=== PATIENT | male | born 1985 | race Caucasian/White ===

== ENCOUNTER 2018-03-21 09:31 | Emergency (ER) | payer SELFPAY ==
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
[2018-03-21 12:09] VITALS: BP 121/89
== END 2018-03-21 12:12 | disposition home or self-care (01) ==
LOC: ED 09:31
DX: G89.29 Other chronic pain (principal); M54.9 Dorsalgia, unspecified; F17.210 Nicotine dependence, cigarettes, uncomplicated; Z04.1 Encounter for examination and observation following transport accident
CPT/HCPCS: 99282

== ENCOUNTER 2018-12-10 07:28 | Inpatient (IN) | payer OTHER ==
--- NOTE | 2018-12-10 07:59 | ED ---
Complex/Multi-Sys Presentation - HPI Summary HPI Summary: This patient is a 33 year old M with hx IVDU presenting to [facility] with a chief complaint of fall, vomiting constantly, loss of appetite, SOB, and abrasions to bliateral knees. Pt was brought into ED by mother who "did not want him at home ". Pt last used heroin 4 days ago. He was DC'd from rehab on 12/05/18. Upon presentation he is found to be hypothermic with temp 94.6 temporal. Pt was previously in ED on 12/07/18 and was diagnosed with pancreatitis, hyponatremia and acute injury, but declined admission at that time. During that ED admission , pt was hydrated with 2L NS and given Rx for zofran. He had a RUQ US neg for gallstones at that time and a neg CXR. The triage nurse today found a needle in patient's pocket. Pt has generalized pain that he rates 8/10 at triage. Per triage, detox from heroin two weeks ago, was seen Saturday to r/o pancreatitis, but treated for dehydration. Returns today after fall, hit head, vomiting. Difficulty breathing Vital signs while in room: HR 105 bpm, BP 83/63, O2 sat 100% Home Medications Medication Instructions Recorded Confirmed Type Buprenorphine HCl/Naloxone HCl 2 film SL BID 03/21/18 03/21/18 History [Suboxone 12 mg-3 mg Sl Film] Ondansetron ODT TAB* [Zofran 4 MG 4 mg PO Q8H PRN #12 tab.odt 12/07/18 Rx Odt TAB*] - History Of Current Complaint Chief Complaint: EDDetoxRequest Hx Obtained From: Patient, Medical Records - [facility] [place] 12/07/18 Onset/Duration: Still Present Timing: Constant Severity Currently: Severe Severity Initially: Severe Location: Pain At: - generalized Character: Dull Aggravating Factor(s): nothing Alleviating Factor(s): lying down Associated Signs And Symptoms: Positive: SOB, Vomiting, Other - abrasions, presents hypothermic 94.6 temporal. Negative: Headache Related History: Other - IVDU - Allergies/Home Medications Allergies/Adverse Reactions: Allergies Allergy/AdvReac Type Severity Reaction Status Date / Time No Known Allergies Allergy Verified 12/07/18 10:07 PMH/Surg Hx/FS Hx/Imm Hx Previously Healthy: No Endocrine/Hematology History: Denies: Hx Diabetes Cardiovascular History: Denies: Hx Hypercholesterolemia, Hx Hypertension Respiratory History: Denies: Hx Asthma GI History: Reports: Other GI Disorders - pancreatitis Musculoskeletal History: Reports: Other Musculoskeletal History - Chronic back pain Sensory History: Denies: Hx Deafness Psychiatric History: Reports: Hx Substance Abuse - IVDU, failed rehab, DC'd from rehab 12/05/18 - Cancer History Cancer Type, Location and Year: None reported - Surgical History Surgical History: None Surgery Procedure, Year, and Place: None reported Infectious Disease History: No Infectious Disease History: Denies: Traveled Outside the [place] in Last 30 Days - Family History Known Family History: Negative: Cardiac Disease, Hypertension, Diabetes - Social History Occupation: Unemployed Alcohol Use: None Hx Substance Use: Yes Substance Use Type: Reports: Heroin, Prescribed Substance Use Comment - Amount & Last Used: last used 12/06/18 Hx Tobacco Use: Yes Smoking Status (MU): Heavy Every Day Tobacco Smoker Review of Systems Constitutional: Other - hypothermic T 94.6 temporal Positive: Other - pos - loss of appetite ENT: Negative Cardiovascular: Negative Positive: Shortness Of Breath Positive: Vomiting Positive: no symptoms reported Musculoskeletal: Negative Positive: Other - pos - abrasions Negative: Headache Psychological: Normal All Other Systems Reviewed And Are Negative: Yes Physical Exam - Summary Physical Exam Summary: Appearance: Ill-appearing, moderate pain distress, well-nourished, goosebumps, shivering Skin: cool to touch, color reflects adequate perfusion, dry, Abrasions on L knee Head: Normal Head/Face inspection, atraumatic Eyes: Conjunctiva clear, PERRL, EOMI ENT: Normal inspection Neck: Supple, no nodes, no JVD, spines nontender Respiratory: Lungs clear, normal breath sounds, no respiratory distress Cardio: RRR, No murmur, pulses normal, brisk capillary refill Abdomen: Soft, nontender, nondistended, no guarding, no rebound, no masses Bowel sounds: Present Musculoskeletal: Strength Intact/ROM intact, no calf tenderness, no edema. Psychological: Normal Neuro: Alert, muscle tone normal, no focal deficit Triage Information Reviewed: Yes Vital Signs On Initial Exam: Initial Vitals Temp Pulse Resp BP Pulse Ox 94.6 F 111 28 72/38 100 12/10/18 07:29 12/10/18 07:29 12/10/18 07:29 12/10/18 07:29 12/10/18 07:29 Vital Signs Reviewed: Yes Diagnostics - Vital Signs Vital Signs Temp Pulse Resp BP Pulse Ox 12/10/18 07:29 94.6 F 111 28 72/38 100 - Laboratory Result Diagrams: 12/10/18 22:57 12/10/18 11:13 Lab Statement: Any lab studies that have been ordered have been reviewed, and results considered in the medical decision making process. - Radiology CXR Radiology Interpretation Completed By: Radiologist Summary of Radiographic Findings: CXR reveals, per radiologist, IMPRESSION: LOW LUNG VOLUMES, SMALL LEFT BASILAR INFILTRATE. ED physician has reviewed this radiology report. - EKG 0841 Cardiac Rate: NL, Tachycardia EKG Rhythm: Sinus Tachycardia - 100 ST Segment: Non-Specific Ectopy: None Summary of EKG Findings: An EKG at 0841 reveals sinus tachycardia 100 bpm, nml AVCT, prolonged IV/CT (115), nonspecific, prolonged QTc (559). No prior to compare. ED MD has reviewed and interpreted this EKG. Re-Evaluation - Re-Evaluation First Eval Re-Evaluation Time: 09:28 Change: Improved Comment: Pt is on Rajan hugger. Temp is now 99.6 rectally. BP 110/56, HR 102, pt is nauseated, and agrees to admission. Complex Multi-Symp Course/Dx Course Of Treatment: 33 yo M with hx IVDU presents to ED with vomiting, SOB, abrasions to his knee after a fall, and is found to be hypothermic with temporal temp 94.6. Pt was found with needle in his pocket by triage nurse, states his last heroin used was 12/06/18, falied rehab after DC 12/05/18. Pt was in ED 12/07/18 dx'd with pancreatitis, hyponatremia, acute kidney injury, but declined admission at that time. Pt agrees to admission at this time with dx severe sepsis, hypothermia, pneumonia, hyponatremia. Initial physical exam findings are hypothermia 94.6, hypotension 72/38, tachycardia 111, pt alert, O x 3, +goosebumps, shivering, abrasions L knee, nauseous, abdomen soft, nontender, lungs clear, no focal neurologic findings. Pt was not given narcan upon admission as he was fully alert and coherent and denied use of heroin DERRICK MAN. Blood work obtained. Troponin I is 0.05, Myoglobin is 1844.6, INR is 1.23, Plt Count is 647, WBC is 25.9, Potassium is 3.0, Chloride is 59, Carbon Dioxide is 34, Anion Gap is 33, BUN is 68, Creatinine is 4.86, Glucose is 200, Magnesium is 3.0, Total Bilirubin is 1.10, AST is 44, Alkaline Phosphatase is 125, and Total creatine kinase is 751, lactic acid 12.2. I am aware of troponin of 0.05 at 9:05. Aware of Lactic Acid of 12.2 at 09:49. An EKG at 0841 reveals sinus tachycardia 100 bpm, nml AV CT, prolonged IV/CT (115), nonspecific, prolonged QTc (559). No prior to compare. CXR reveals, per radiologist, IMPRESSION: LOW LUNG VOLUMES, SMALL LEFT BASILAR INFILTRATE. Pt medications reviewed this visit. Nurses notes reviewed. Allergies noted. Low blood pressure noted, hypothermia noted. Upon re-eval temp is 99.6 rectal, BP 110/56, HR 102, pt is nauseated, and agrees to admission. In the ED course the patient was given zofran and warmed IV fluids per sepsis protocol, the RAJAN hugger and IV antibiotics for pneumoia, community acquired, ceftriaxone and azithromycin.. Dr. Hernandez accepts pt for admission. Patient will be admitted to ICU. The patient is agreeable with this plan. - Diagnoses Provider Diagnoses: Left lower lobe pneumonia, Severe sepsis, History of heroin abuse, Hypotension , Acute kidney injury, Hyponatremia, Hypokalemia, Elevated troponin, Hypothermia - Physician Notifications Discussed Care Of Patient With: Anila Hernandez Time Discussed With Above Provider: 09:24 Instructed by Provider To: Other - Dr. Hernandez accepts pt for admission. - Critical Care Time Critical Care Time: 30-74 min Discharge ED - Sign-Out/Discharge Documenting (check all that apply): Patient Departure - Admit Patient Received Moderate/Deep Sedation with Procedure: No - Discharge Plan Condition: Stable Disposition: ADMITTED TO [facility] - Billing Disposition and Condition Condition: STABLE Disposition: Admitted to [facility] - Attestation Statements Document Initiated by Scribe: Yes Documenting Scribe: Trudi Cox Provider For Whom Scribe is Documenting (Include Credential): Dr. Vanna Liriano MD Scribe Attestation: Trudi Baptiste, scribed for Dr. Vanna Liriano MD on 12/10/18 at 2319. Scribe Documentation Reviewed: Yes Provider Attestation: The documentation as recorded by the Trudi turk accurately reflects the service I personally performed and the decisions made by me, Dr. Vanna Liriano MD Status of Scribe Document: Viewed
[2018-12-10] MEDS ORDERED: NS 0.9% 1000 ML** 2,000 ML IV ONE (08:06)
[2018-12-10 08:32] LABS: Hematocrit 42 % (42-52); Hemoglobin 14.5 g/dL (14.0-18.0); Mean Corpuscular HGB Conc 34 g/dL (31-36); Mean Corpuscular Hemoglobin 28 pg (27-31); Mean Corpuscular Volume 82 fL (80-94); Mean Platelet Volume 8.1 fL (7.4-10.4); Platelet Count 647 10^3/uL (150-450); Red Blood Count 5.17 10^6 /uL (4.18-5.48); Red Cell Distribution Width 14 % (10-15); White Blood Count 25.9 10^3/uL (3.5-10.8)
[2018-12-10] MEDS ORDERED: Ondansetron INJ* 2 MG/ML VIAL IV ONE (08:39)
[2018-12-10 08:45] LABS: ALT 31 U/L (7-52); AST 44 U/L (13-39); Albumin 4.6 g/dL (3.2-5.2); Albumin/Globulin Ratio 1.1 (1-3); Alkaline Phosphatase 125 U/L (34-104); Anion Gap 33 mmol/L (2-11); Blood Urea Nitrogen 68 mg/dL (6-24); CO2 Carbon Dioxide 34 mmol/L (22-32); Calcium 9.7 mg/dL (8.6-10.3); Chloride 59 mmol/L (101-111); Creatine Kinase 751 U/L (10-223); EGFR Non-African American 14.1 (>60); Globulin 4.2 g/dL (2-4); Glucose 200 mg/dL (70-100); Sodium 126 mmol/L (135-145); Total Protein 8.8 g/dL (6.4-8.9)
[2018-12-10 08:50] LABS: Myoglobin 1844.6 ng/mL (17.4-105.7)
[2018-12-10 08:51] LABS: CKMB ng/mL 6.1 ng/mL (0.6-6.3)
[2018-12-10 08:52] LABS: Activated Partial Thrombo Time 26.5 seconds (26.0-38.0); INR 1.23 (0.82-1.09)
[2018-12-10 08:54] LABS: Troponin I 0.05 ng/mL (<0.04)
[2018-12-10 09:15] LABS: T4, Total 8.58 mcg/dL (6.09-12.23)
[2018-12-10] MEDS ORDERED: Azithromycin 500 mg/250 ml NS 500 MG/250 ML BAG IVPB ONE (09:15)
[2018-12-10] MEDS ORDERED: cefTRIAXone(*) 1 GM in NS 0.9% 50 ML* 50 ML IVPB ONE (09:15)
[2018-12-10] MEDS ORDERED: NS 0.9% 1000 ML** 1,000 ML IV.FLUID IV ONE (09:15)
[2018-12-10 09:19] LABS: TSH (Thyroid Stimulating Horm) 0.45 mcIU/mL (0.34-5.60)
[2018-12-10 09:38] LABS: ABS Basophils 0.1 10^3/ul (0-0.2); ABS Lymphocytes 1.9 10^3/ul (1.0-4.8); ABS Monocytes 1.6 10^3/ul (0-0.8); ABS Neutrophils 22.3 10^3/ul (1.5-7.7); Lymphocyte % 7.4 %
[2018-12-10] MEDS: KCL 10 MEQ/50 ML IVPREMIX* 10 MEQ/50 ML BAG IV SCH ×2 (09:39→10:55)
[2018-12-10 11:23] LABS: Hematocrit 35 % (42-52); Hemoglobin 12.3 g/dL (14.0-18.0); Mean Corpuscular HGB Conc 35 g/dL (31-36); Mean Corpuscular Hemoglobin 28 pg (27-31); Mean Corpuscular Volume 81 fL (80-94); Mean Platelet Volume 7.7 fL (7.4-10.4); Platelet Count 418 10^3/uL (150-450); Red Blood Count 4.36 10^6 /uL (4.18-5.48); Red Cell Distribution Width 14 % (10-15); White Blood Count 19.9 10^3/uL (3.5-10.8)
--- NOTE | 2018-12-10 11:36 | HP ---
History of Present Illness - History of Present Illness Reason for Visit: septic shock History of Present Illness: 33 M with hx of IVDA p/w weakness, falls, n/v, vague abdominal pains, and not being able to eat. Patient just released from rehab 12/05/18. Patient confided to nurse he had been using Heroin several days ago. Needle also found in patient 's pocket. Patient recently seen in the ED and given Z-pack for dehydration and r/o pancreatitis. Had completed 4 out of 5 days of Z-pack. Bladder scan in the ED negative for urine. Patient's SBP's 70's initially. HR low 100's, hypothermic, RR 21-28 and 02 sat 99%. Patient received so far 5 liters in the ED. SBP's now 130's with HR 100's. Labs notable for elevated WBC count 25.9 with left shift, LA 12, creat 4.86. ICU called for septic shock c/b LILLIAN and OD? - Past Surgical History Past Surgical History: None - Past Family History Family History: None - Past Social History Occupation: not working Drugs: Heroin Review of Systems - Review of Systems Constitutional: Positive: Fever, Weakness, Malaise Gastrointestinal: Positive: Nausea, Vomiting, Abdominal Pain - Medications/Allergies Allergies/Adverse Reactions: Allergies Allergy/AdvReac Type Severity Reaction Status Date / Time No Known Allergies Allergy Verified 12/07/18 10:07 Medications: Current Medications Potassium Chloride (Potassium Chloride 10 Meq/50 Ml Ivpremix*) 10 meq in 50 mls @ 50 mls/hr IV Q2H CHELSEA Stop: 12/10/18 12:59 Last Admin: 12/10/18 10:55 Dose: 50 mls/hr Exam - Exam Vital Signs: Vital Signs (72 hours) 12/10/18 12/10/18 12/10/18 07:29 08:07 08:37 Temperature 94.6 F Pulse Rate 111 104 100 Respiratory 28 21 21 Rate Blood Pressure 72/38 99/73 98/79 (mmHg) O2 Sat by Pulse 100 100 99 Oximetry 12/10/18 12/10/18 09:00 09:07 Temperature Pulse Rate 95 99 Respiratory 26 17 Rate Blood Pressure 110/66 (mmHg) O2 Sat by Pulse 100 98 Oximetry General: Alert, Oriented x3, Cooperative, No acute distress HEENT: Other - small left contusion over L eyebrow Lungs: Clear to auscultation Cardiovascular: Regular rate Abdomen: Normal bowel sounds, Soft, No tenderness, Other - mild epigastric pain. negative raygoza's sign or Extremities: No clubbing, No cyanosis Skin: No rashes Neurological: Normal gait Psych/Mental Status: Mood NL Assessment/Plan - Assessment/Plan Assessment: septic shock OD and drug abuse 2/2 Heroin LILLIAN 2/2 dehydration Lactic acidosis PNA - aspiration Hyponatremia Hypokalemia Mild rhabdo Dehydration Plan: Add Vancomycin Check TTE to r/o vegetations from IVDA Continue aggressive IVF's F/U CK's Replenish K and check Mg and f/u S Na Add Cefepime for aspiration PNA continue to monitor Lactates rehab consult admit to ICU for monitoring D/W father and patient his condition severity CCM time 75 minutes
[2018-12-10 11:58] LABS: ALT 22 U/L (7-52); AST 33 U/L (13-39); Albumin 3.8 g/dL (3.2-5.2); Albumin/Globulin Ratio 1.2 (1-3); Alkaline Phosphatase 97 U/L (34-104); BUN/Creatinine Ratio 14.9 (8-20); Blood Urea Nitrogen 66 mg/dL (6-24); C Reactive Protein 92.36 mg/L (<8.01); Calcium 7.9 mg/dL (8.6-10.3); Chloride 72 mmol/L (101-111); EGFR African American 18.9 (>60); EGFR Non-African American 15.6 (>60); Globulin 3.1 g/dL (2-4); Glucose 83 mg/dL (70-100); Potassium 3.6 mmol/L (3.5-5.0); Sodium 129 mmol/L (135-145); Total Protein 6.9 g/dL (6.4-8.9)
[2018-12-10] MEDS ORDERED: Vancomycin per Pharmacy* NOTE FOLLOW UP PRN (11:59)
[2018-12-10] MEDS ORDERED: Vancomycin(*) 1,000 MG VIAL IVPB SCH (12:00)
[2018-12-10] MEDS ORDERED: Vancomycin 1500 MG IV - x ONCE IVPB ONE ×2 (12:00)
[2018-12-10 12:03] LABS: ABS Basophils 0.1 10^3/ul (0-0.2); ABS Lymphocytes 1.2 10^3/ul (1.0-4.8); ABS Monocytes 2.2 10^3/ul (0-0.8); ABS Neutrophils 16.4 10^3/ul (1.5-7.7); CKMB ng/mL 5.9 ng/mL (0.6-6.3); Eosinophil % 0.1 %; Lymphocyte % 6.2 %
[2018-12-10 12:05] LABS: Anion Gap 12 mmol/L (2-11); CO2 Carbon Dioxide 45 mmol/L (22-32); Troponin I 0.07 ng/mL (<0.04)
[2018-12-10] MEDS ORDERED: Lactated Ringers 1000 ML Bag* 1,000 ML IV ONE (13:00)
[2018-12-10] MEDS: Cefepime 1 GM in Dextrose(*) 1 GM/50 ML BAG IV SCH ×2 (13:10→23:26)
[2018-12-10] MEDS: Lactated Ringers 1000 ML Bag* 1,000 ML IV SCH ×2 (15:28→22:46)
[2018-12-10 16:43] LABS: Urine Benzodiazepine Screen Presumptive Positive (None Detect); Urine Opiates Screen Presumptive Positive (None Detect)
[2018-12-10 16:53] LABS: Urine Appearance Turbid; Urine Bacteria 1+ (Absent); Urine Bilirubin Negative (Negative); Urine Blood 1+ (Negative); Urine Color Amber; Urine Glucose Negative (Negative); Urine Granular Casts Present (Absent); Urine Ketones Negative (Negative); Urine Nitrite Negative (Negative); Urine Protein 2+(100 mg/dL) (Negative); Urine Red Blood Cell 1+(3-5/hpf) (Absent); Urine Specific Gravity 1.016 (1.010-1.030); Urine Squamous Epithelial Cell Present (Absent); Urine Urobilinogen Negative (Negative); Urine White Blood Cell 1+(6-10/hpf) (Absent)
[2018-12-10] MEDS ORDERED: Ondansetron INJ* 2 MG/ML VIAL ONE (18:22)
[2018-12-10] MEDS ORDERED: Ondansetron INJ* 2 MG/ML VIAL IV PRN (18:25)
[2018-12-10] MEDS ORDERED: Nicotine Lozenge* mini 4 MG LOZNG.MINI MT PRN (18:25)
[2018-12-10] MEDS ORDERED: LACTATED RINGERS 1000 ML/HR *Bolus IV ONE (19:00)
[2018-12-10 20:22] LABS: Troponin I 0.06 ng/mL (<0.04)
--- NOTE | 2018-12-10 21:32 | ECHO ---
*[facility] [place] [address] Fax #: [phone] Transthoracic Echocardiogram Patient: Jesus Grey : 1985 Study Date: 12/10/2018 Age: 33 Gender: M HR: 76 bpm Height: 78 in /198.1 cm BSA: 2.48 m^2 Weight: 249.5 lb /113.4 kg BMI: 28.9 kg/m^2 *Collection Technician: * Devora Wright [facility] *Referring Physician: * Chapo Power *Reading Physician: * Radha Andrade MD Indications: Myocardial Infarction. Shock, other (Septic). History: IVDU. Conclusions Summary: - Left ventricle: Systolic function is vigorous. The estimated ejection fraction is 60-65%. Wall motion is normal; there are no regional wall motion abnormalities. - Right ventricle: Systolic function is normal. - All valves show normal function. - No prior echocardiogram to compare. Study data: Transthoracic echocardiogram. Procedure: Transthoracic echocardiography was performed. Image quality was fair. Complete 2D, spectral Doppler, and color flow Doppler. Location: ICU Patient status: Inpatient. Patient room number: 7. Rhythm: Normal sinus rhythm. Findings Left ventricle: The cavity size is normal. Wall thickness is normal. Systolic function is vigorous. The estimated ejection fraction is 60-65%. Wall motion is normal; there are no regional wall motion abnormalities. There is no consistent Doppler evidence of clinically significant diastolic dysfunction. Right ventricle: The cavity size is normal. Systolic function is normal. Left atrium: The atrium is normal in size. Right atrium: The atrium is normal in size. Mitral valve: The leaflets are normal thickness. There is no evidence of a vegetation. There is no evidence of stenosis. There is no significant regurgitation. Aortic valve: The valve is trileaflet. The leaflets are normal thickness. There is no evidence of a vegetation. There is no evidence of stenosis. There is no significant regurgitation. Tricuspid valve: The leaflets are normal thickness. There is no evidence of a vegetation. There is no evidence of stenosis. There is no significant regurgitation. Pulmonic valve: The leaflets are normal thickness. There is no evidence of a vegetation. There is no evidence of stenosis. There is trace regurgitation. Aorta: Aortic root: The aortic root is upper normal in size. Ascending aorta: The ascending aorta is appears normal. Aortic arch: The aortic arch is appears normal. Pericardium: There is no significant pericardial effusion. Pulmonary arteries: Not well visualized. Systolic pressure can not be accurately estimated. Systemic veins: Inferior vena cava: The vessel is normal in size. There is (>= 50%) respiratory change in the IVC dimension. Measurements Left ventricle Value Ref Right atrium continued Value Ref KAROLYN, LAX 4.8 cm 4.2 - 5.8 ML dim, ES, A4C 4.1 cm 2.6 - 4.4 ESD, LAX 3.5 cm 2.5 - 4.0 Estimated RAP 8 mm Hg --------- FS, LAX 27 % 25 - 43 PW, ED, LAX (H) 1.1 cm 0.6 - 1.0 Aortic valve Value Ref EF 53 % 52 - 72 Americo diam, ED 2.5 cm --------- E', lat americo, TDI 10.9 cm/sec >=10.0 Peak v, S 1.69 m/sec ----- ---- E/e', lat americo, 6 VTI, S 30.1 cm -------- - TDI Mean grad, S 7.0 mm Hg --------- E', med americo, TDI 13.0 cm/sec >=7.0 Peak grad, S 11.0 mm Hg ----- ---- E/e', med americo, 5 TDI Mitral valve Value Ref E', avg, TDI 12.0 cm/sec Peak E 0.66 m/sec -------- - E/e', avg, TDI 6 <=14 Peak A 0.62 m/sec ----- ---- Decel time 129 ms --------- LVOT Value Ref Peak E/A ratio 1.1 --------- Peak patsy, S 1.38 m/sec Peak grad, S 8 mm Hg Pulmonic valve Value Ref Mean grad, S 4 mm Hg Peak v, S 1.1 m/sec --------- Peak grad, S 5.0 mm Hg --------- Ventricular septum Value Ref IVS, ED (H) 1.1 cm 0.6 - 1.0 Aortic root Value Ref Root diam 3.7 cm <4.2 Right ventricle Value Ref KAROLYN, LAX 2.8 cm Aortic arch Value Ref KAROLYN minor ax, 2.6 cm 1.9 - 3.5 Arch diam 3.2 cm --------- A4C mid Decending aorta Value Ref Left atrium Value Ref Debi peak patsy 0.61 m/sec --------- AP dim, ES 3.50 cm 3.00 - 4.00 Inferior vena cava Value Ref ML dim, A4C 4.5 cm Diam 1.3 cm --------- SI dim, A4C 4.4 cm Vol/bsa, ES, 1-p 20 ml/m^2 12 - 37 A4C Right atrium Value Ref SI dim, ES 4.3 cm 3.4 - 5.3 Legend: (L) and (H) irma values outside specified reference range. Prepared and electronically signed by Radha Andrade MD 12/10/2018 21:31
[2018-12-10 23:13] LABS: Hematocrit 31 % (42-52); Hemoglobin 10.7 g/dL (14.0-18.0); Mean Corpuscular HGB Conc 34 g/dL (31-36); Mean Corpuscular Hemoglobin 28 pg (27-31); Mean Corpuscular Volume 81 fL (80-94); Mean Platelet Volume 7.8 fL (7.4-10.4); Platelet Count 334 10^3/uL (150-450); Red Blood Count 3.84 10^6 /uL (4.18-5.48); Red Cell Distribution Width 15 % (10-15); White Blood Count 17.4 10^3/uL (3.5-10.8)
[2018-12-10 23:31] LABS: Albumin 3.4 g/dL (3.2-5.2); Albumin/Globulin Ratio 1.2 (1-3); BUN/Creatinine Ratio 16.7 (8-20); EGFR African American 20.8 (>60); EGFR Non-African American 17.2 (>60); Globulin 2.8 g/dL (2-4); Magnesium 2.4 mg/dL (1.9-2.7); Total Bilirubin 0.5 mg/dL (0.2-1.0); Total Protein 6.2 g/dL (6.4-8.9)
[2018-12-10 23:34] LABS: Potassium 2.7 mmol/L (3.5-5.0)
[2018-12-10 23:35] LABS: ABS Basophils 0.1 10^3/ul (0-0.2); ABS Lymphocytes 1.9 10^3/ul (1.0-4.8); ABS Monocytes 1.8 10^3/ul (0-0.8); ABS Neutrophils 13.5 10^3/ul (1.5-7.7); Eosinophil % 0.2 %
[2018-12-10] MEDS: KCL 20 MEQ/100 ML IVPREMIX* 20 MEQ/100 ML BAG IV SCH (23:59)
[2018-12-11] MEDS: KCL 20 MEQ/100 ML IVPREMIX* 20 MEQ/100 ML BAG IV SCH ×3 (02:12→13:04)
[2018-12-11] MEDS: Lactated Ringers 1000 ML Bag* 1,000 ML IV SCH ×3 (05:14→19:30)
[2018-12-11] MEDS: Acetaminophen TAB* 325 MG PO PRN (05:38)
[2018-12-11] MEDS ORDERED: Vancomycin Random Level* NOTE FOLLOW UP ONE (06:00)
[2018-12-11] MEDS ORDERED: Acetaminophen TAB* 325 MG PO ONE (06:17)
[2018-12-11 07:44] LABS: Vancomycin Random 13.2 mcg/mL
[2018-12-11 08:25] LABS: HIV 4th Generation Nonreactive (Nonreactive)
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
[2018-12-11 11:54] LABS: Calcium 8.6 mg/dL (8.6-10.3); Potassium 3.2 mmol/L (3.5-5.0)
[2018-12-11 11:58] LABS: BUN/Creatinine Ratio 17.1 (8-20); EGFR African American 24.8 (>60); EGFR Non-African American 20.5 (>60)
[2018-12-11] MEDS ORDERED: Potassium Chlor TAB* 20 MEQ TAB.ER PO ONE (12:01)
[2018-12-11] MEDS ORDERED: Vancomycin(*) 1,250 MG in NS 0.9% 250 ML* 250 ML IVPB ONE (12:30)
[2018-12-11] MEDS: Cefepime 1 GM in Dextrose(*) 1 GM/50 ML BAG IV SCH (13:08)
[2018-12-12] MEDS: Cefepime 1 GM in Dextrose(*) 1 GM/50 ML BAG IV SCH ×3 (00:11→23:36)
[2018-12-12] MEDS: Lactated Ringers 1000 ML Bag* 1,000 ML IV SCH ×2 (02:38→13:08)
[2018-12-12] MEDS ORDERED: Vancomycin Random Level* NOTE FOLLOW UP ONE (06:00)
[2018-12-12 06:39] LABS: ABS Basophils 0.1 10^3/ul (0-0.2); ABS Eosinophils 0.1 10^3/ul (0-0.6); ABS Lymphocytes 1.5 10^3/ul (1.0-4.8); ABS Monocytes 1.3 10^3/ul (0-0.8); ABS Neutrophils 6.9 10^3/ul (1.5-7.7); Eosinophil % 0.8 %; Hematocrit 33 % (42-52); Hemoglobin 11.5 g/dL (14.0-18.0); Lymphocyte % 15.6 %; Mean Corpuscular HGB Conc 35 g/dL (31-36); Mean Corpuscular Hemoglobin 29 pg (27-31); Mean Corpuscular Volume 82 fL (80-94); Mean Platelet Volume 7.6 fL (7.4-10.4); Platelet Count 327 10^3/uL (150-450); Red Cell Distribution Width 14 % (10-15); White Blood Count 9.9 10^3/uL (3.5-10.8)
[2018-12-12 07:01] LABS: Albumin 3.6 g/dL (3.2-5.2); Albumin/Globulin Ratio 1.3 (1-3); BUN/Creatinine Ratio 18.2 (8-20); Calcium 8.9 mg/dL (8.6-10.3); EGFR African American 53.2 (>60); EGFR Non-African American 43.9 (>60); Globulin 2.8 g/dL (2-4); Magnesium 2.2 mg/dL (1.9-2.7); Total Bilirubin 0.5 mg/dL (0.2-1.0); Total Protein 6.4 g/dL (6.4-8.9)
[2018-12-12 07:22] LABS: Potassium 2.6 mmol/L (3.5-5.0)
[2018-12-12] MEDS ORDERED: KCL 20 MEQ/100 ML IVPREMIX* 20 MEQ/100 ML BAG IV SCH (09:00)
[2018-12-12] MEDS ORDERED: Vancomycin(*) 1,250 MG in NS 0.9% 250 ML* 250 ML IVPB SCH (10:00)
--- NOTE | 2018-12-12 10:01 | PN ---
Date of Service: 12/12/18 Critical Care Services: Renal functions improving. GOod UOP Remains hypokalemic. Some nausea last night though now wants to eat no signs of withdrawal no fevers and Cx's remain NGTD Vital Signs: Temp Pulse Resp BP SpO2 FiO2 99.3 F 71 17 105/57 92 12/12/18 03:15 12/12/18 09:00 12/12/18 09:00 12/12/18 09:00 12/12/18 09:00 Physical Exam: Gen:NAD. Ao times 3 Lungs: CTA B/L Cardiac: RRR Abdomen:+BS's soft, NTP Extremities:No MARCELINO Neuro:Non-focal Fluid Balance (Past 24 Hours): I= O= Net Intake & Output 12/10/18 12/11/18 12/12/18 12/13/18 06:59 06:59 06:59 06:59 Intake Total 44473 6272 90 Output Total 3525 4060 0 Balance 8050 2212 90 Weight 240 lb 4.862 oz 222 lb 10.67 oz Intake: IV Fluids 9776 3247 LR 3911 3033 NS 265 214 IVPB 599 55 ABX - CEFEPIME 131 55 ABX - VANCOMYCIN 253 Potassium Chloride 215 Oral 1200 2970 90 Output: Urine 1050 4060 0 Jacobs 475 Emesis 1999 Other: Date of Last Bowel 12/10/2018 12/11/18 Movement Other Amount Description 1 large emesis following drinking erum brooke # Voids 0 A Labs: Laboratory Results - last 24 hr 12/11/18 12/12/18 12/12/18 06:51 06:24 06:24 WBC 9.9 RBC 4.00 L Hgb 11.5 L Hct 33 L MCV 82 MCH 29 MCHC 35 RDW 14 Plt Count 327 MPV 7.6 Neut % (Auto) 70.3 Lymph % (Auto) 15.6 [place] % (Auto) 12.8 Eos % (Auto) 0.8 Baso % (Auto) 0.5 Absolute Neuts (auto) 6.9 Absolute Lymphs (auto) 1.5 Absolute Monos (auto) 1.3 H Absolute Eos (auto) 0.1 Absolute Basos (auto) 0.1 Absolute Nucleated RBC 0.0 Nucleated RBC % 0.0 Sodium 130 L 135 Potassium 3.2 L 2.6 L* Chloride 74 L 80 L Carbon Dioxide 43 H* 43 H* Anion Gap 13 H 12 H BUN 60 H 33 H Creatinine 3.50 H 1.81 H Est GFR ( Amer) 24.8 53.2 Est GFR (Non-Af Amer) 20.5 43.9 BUN/Creatinine Ratio 17.1 18.2 Glucose 93 95 Calcium 8.6 8.9 Magnesium 2.2 Total Bilirubin 0.50 AST 25 ALT 18 Alkaline Phosphatase 76 Total Protein 6.4 Albumin 3.6 Globulin 2.8 Albumin/Globulin Ratio 1.3 Random Vancomycin 13.2 12.0 Impression: s/p septic shock with negative Cx's s/p LILLIAN Hypokalemia Aspiration PNA IVDA Plan: Stop Vancomycin Continue Cefepime Continue aggressive IVF's Replenish K and f/u Mg Patient speaking to SW regarding rehab. patient wants to go back to drug rehab if someone will accept him transfer to floor Critical Care Time: 45
[2018-12-12] MEDS ORDERED: Potassium Chlor TAB* 20 MEQ TAB.ER PO ONE ×2 (11:00→20:55)
[2018-12-12] MEDS: Nicotine PATCH 14 MG/24 HR* PATCH TRANSDERM SCH (12:51)
[2018-12-12] MEDS: Acetaminophen TAB* 325 MG PO PRN (13:00)
[2018-12-12] MEDS: Nicotine Patch Removal NOTE PATCH OFF SCH (20:00)
[2018-12-12] MEDS ORDERED: Acetaminophen TAB* 325 MG PO PRN (20:38)
[2018-12-12] MEDS ORDERED: ALPRAZolam TAB* 0.5 MG PO ONE (20:50)
[2018-12-12] MEDS ORDERED: traMADol TAB* 50 MG PO ONE (20:51)
--- NOTE | 2018-12-12 21:02 | PN ---
Hospitalist Progress Note Date of Service: 12/12/18 Called by Nursing for patient c/o back pain. Patient evaluated at the bedside. C/o lower back pain , patient reports that he has chronic lower back pain for which he uses heroin to treat at home. Reports that he take 3 grams of heroin daily and take xanax as well up to 4 mg a day. L- spine is tender to palpation. no evidence of redness or open lesions. Will give 1 time dose of Tramadol and Xanax. tonight. Will give potassium 60 meq as patient is refusing IV. Repeat potassium level in the AM. May need to consider lumbar spine imaging as the patient has a HX if IV drug use.
[2018-12-12] MEDS ORDERED: traZODone TAB* 50 MG TAB PO ONE (23:46)
[2018-12-13 05:20] LABS: BUN/Creatinine Ratio 18.7 (8-20); Calcium 8.5 mg/dL (8.6-10.3); EGFR African American 97.5 (>60); EGFR Non-African American 80.6 (>60); Potassium 3.4 mmol/L (3.5-5.0)
[2018-12-13] MEDS: Lactated Ringers 1000 ML Bag* 1,000 ML IV SCH (05:34)
[2018-12-13] MEDS ORDERED: Vancomycin Trough Check NOTE FOLLOW UP ONE (09:30)
[2018-12-13] MEDS ORDERED: Potassium Chlor TAB* 20 MEQ TAB.ER PO ONE (09:36)
[2018-12-13] MEDS ORDERED: Vancomycin per Pharmacy* NOTE FOLLOW UP SCH ×2 (10:00→17:00)
[2018-12-13] MEDS: Nicotine PATCH 14 MG/24 HR* PATCH TRANSDERM SCH (10:58)
[2018-12-13] MEDS: hydrOXYzine HCL TAB* 25 MG PO PRN ×2 (11:47→21:10)
[2018-12-13] MEDS: Cefepime 1 GM in Dextrose(*) 1 GM/50 ML BAG IV SCH (11:47)
[2018-12-13 15:34] LABS: BUN/Creatinine Ratio 15.3 (8-20); Calcium 8.6 mg/dL (8.6-10.3); EGFR African American 93.5 (>60); EGFR Non-African American 77.3 (>60); Potassium 4.1 mmol/L (3.5-5.0)
[2018-12-13] MEDS ORDERED: Vancomycin(*) 1,500 MG in NS 0.9% 250 ML* 250 ML IVPB ONE (17:00)
--- NOTE | 2018-12-13 17:05 | PN ---
Subjective Date of Service: 12/13/18 Interval History: Patient tells me he has been taking [address] BID off [address]. He has mcfp anxiety issues but PDMP is without any benzo prescriptions in the last year and a half. Tells me he wants to go into methadone program. He reports low back pain, which is chronic. Denies LE weakness or LE paresthesias. Denies fever /chills, chest pain, difficulty breathing, abd pain, nausea, vomiting. Objective Active Medications: Acetaminophen (Tylenol Tab*) 975 mg PO Q8H PRN PRN Reason: PAIN - MILD Alprazolam (Xanax Tab*) 1 mg PO BID PRN PRN Reason: ANXIETY Hydroxyzine HCl (Atarax Tab*) 25 mg PO Q6H PRN PRN Reason: ANXIETY Last Admin: 12/13/18 11:47 Dose: 25 mg Cefepime HCl (Maxipime 1 Gm In Dextrose Duplex (*)) 1 gm in 50 mls @ 100 mls/ hr IV 0000,1200 [facility] Last Admin: 12/13/18 11:47 Dose: 100 mls/hr Vancomycin HCl 1,500 mg/ (Sodium Chloride) 250 mls @ 166.667 mls/hr IVPB ONCE ONE; Protocol Stop: 12/13/18 18:29 Vancomycin HCl 1,000 mg/ (Sodium Chloride) 250 mls @ 166.667 mls/hr IVPB Q6HR [facility] Nicotine (Nicotine Patch 14 Mg/24 Hr*) 1 patch TRANSDERM DAILY [facility] Last Admin: 12/13/18 10:58 Dose: 1 patch Nicotine Polacrilex (Nicotine Lozenge Mini) 4 mg MT Q2H PRN PRN Reason: WITHDRAWAL Last Admin: 12/10/18 19:03 Dose: 4 mg Ondansetron HCl (Zofran Inj*) 4 mg IV Q6H PRN PRN Reason: NAUSEA Last Admin: 12/11/18 05:46 Dose: 4 mg Pharmacy Consult (Vancomycin Per Pharmacy*) 1 note FOLLOW UP .VANC PER PHARMACY [facility]; Protocol Pharmacy Profile Note (Nicotine Patch Removal Note*) 1 note PATCH OFF 2100 [facility] Last Admin: 12/12/18 20:00 Dose: 1 note Pharmacy Profile Note (Vancomycin Trough Check) 1 note FOLLOW UP ONCE ONE Stop: 12/15/18 05:31 Senna (Senokot 8.6 Mg Tab*) 2 tab PO BEDTIME [facility] Sertraline HCl (Zoloft*) 25 mg PO DAILY [facility] Vital Signs - 8 hr 12/13/18 11:15 Temperature 98.1 F Pulse Rate 69 Respiratory 18 Rate Blood Pressure 118/72 (mmHg) O2 Sat by Pulse 99 Oximetry Oxygen Devices in Use Now: None Appearance: Thin, young, white male laying in bed appearing in NAD Eyes: No Scleral Icterus, PERRLA Ears/Nose/Mouth/Throat: Mucous Membranes Moist Neck: NL Appearance and Movements; NL JVP Respiratory: Symmetrical Chest Expansion and Respiratory Effort, Clear to Auscultation Cardiovascular: NL Sounds; No Murmurs; No JVD, RRR Abdominal: - - abd soft, nontender, nondistended Extremities: No Edema, No Clubbing, Cyanosis Skin: No Rash or Ulcers Neurological: Alert and Oriented x 3, NL Muscle Strength and Tone Result Diagrams: 12/12/18 06:24 12/13/18 15:04 Microbiology and Other Data: Microbiology 12/10/18 08:59 Aerobic Blood Culture - Preliminary Blood Venous No Growth Day 3 Anaerobic Blood Culture - Preliminary No Growth Day 3 12/10/18 08:15 Aerobic Blood Culture - Preliminary Blood Venous No Growth Day 3 Anaerobic Blood Culture - Preliminary No Growth Day 3 12/10/18 16:10 Urine Culture - Final Urine No Growth (<1,000 CFU/mL) 12/10/18 13:00 Nasal Screen MRSA (PCR) - Final Nasal Mrsa Not Detected Assess/Plan/Problems-Billing Assessment: 33 yo male with PMHx IVDA, generalized anxiety, and hiatal hernia presents with septic shock and fever of unknown origin. - Patient Problems (1) Septic shock Current Visit: Yes Status: Acute Code(s): A41.9 - SEPSIS, UNSPECIFIED ORGANISM; R65.21 - SEVERE SEPSIS WITH SEPTIC SHOCK SNOMED Code(s): 28799394 Comment: -now resolved -secondary to unclear source -originally with lactate of 12, has since normalized; initially with hypotension which has now resolved as well (2) Fever of unknown origin Current Visit: Yes Status: Acute Comment: -patient presented with fever, leukocytosis and signs of septic shock -given IVDA, high concern for endocarditis -TTE without vegetation, ordered JAMES but will not be performed over the holiday weekend -improved with vancomycin, continuing -blood and urine cultures without growth, CXR negative -ordered MRI with contrast of thoracic and lumbar spine to r/o spinal epidural abscess, pending -afebrile for ~36 hours and leukocytosis resolved (3) IV drug abuse Current Visit: Yes Status: Acute Code(s): F19.10 - OTHER PSYCHOACTIVE SUBSTANCE ABUSE, UNCOMPLICATED SNOMED Code(s): 503132004 Comment: -patient has been in inpatient rehab, left two weeks ago, and has returned to using IV heroin -restarting suboxone at 8mg, patient previously prescribed 12 mg and will likely tolerate uptitration (4) Benzodiazepine abuse Current Visit: Yes Status: Acute Code(s): F13.10 - SEDATIVE, HYPNOTIC OR ANXIOLYTIC ABUSE, UNCOMPLICATED SNOMED Code(s): 097629185 Comment: -given that patient has been taking xanax recreationally at 2 mg po BID, I will continue at 1 mg po BID to avoid withdrawal and he should be titrated down -started zoloft for generalized anxiety (5) LILLIAN (acute kidney injury) Current Visit: Yes Status: Acute Code(s): N17.9 - ACUTE KIDNEY FAILURE, UNSPECIFIED SNOMED Code(s): 17429057 Comment: -likely prerenal due to septic shock -now resolved (6) Hypokalemia Current Visit: Yes Status: Acute Code(s): E87.6 - HYPOKALEMIA SNOMED Code( s): 19077958 Comment: -vomiting leading up to admission -continued this morning, replaced with 60mg PO potassium chloride -now resolved (7) DVT prophylaxis Current Visit: Yes Status: Acute Code(s): Z29.9 - ENCOUNTER FOR PROPHYLACTIC MEASURES, UNSPECIFIED SNOMED Code(s): 147330726 Comment: -ambulation (8) Full code status Current Visit: Yes Status: Acute Code(s): Z78.9 - OTHER SPECIFIED HEALTH STATUS SNOMED Code(s): 284647541
[2018-12-13] MEDS: ALPRAZolam TAB* 0.5 MG PO PRN (18:02)
[2018-12-13] MEDS: Buprenorp/Nalox 8-2 MG SL TAB PO SCH (21:10)
[2018-12-13] MEDS: Nicotine Patch Removal NOTE PATCH OFF SCH (21:12)
[2018-12-13] MEDS: Senna TAB 8.6 mg* TAB PO SCH (21:12)
[2018-12-14] MEDS: ALPRAZolam TAB* 0.5 MG PO PRN ×3 (00:06→18:18)
[2018-12-14] MEDS: Vancomycin(*) 1,000 MG in NS 0.9% 250 ML* 250 ML IVPB SCH ×5 (00:07→23:45)
[2018-12-14] MEDS: Cefepime 1 GM in Dextrose(*) 1 GM/50 ML BAG IV SCH ×3 (00:08→23:46)
--- NOTE | 2018-12-14 08:52 | PN ---
Subjective Date of Service: 12/14/18 Interval History: Patient is feeling well today, appetite back to normal, ordered food from outside. No fever, chills, sweating, no abdominal pain, no nausea/vomiting. TTE neg Labs: WBC normalized, BMP normal Objective Active Medications: Acetaminophen (Tylenol Tab*) 975 mg PO Q8H PRN PRN Reason: PAIN - MILD Alprazolam (Xanax Tab*) 1 mg PO BID PRN PRN Reason: ANXIETY Last Admin: 12/14/18 00:06 Dose: 1 mg Buprenorphine/Naloxone (Suboxone 8-2 Mg Sl Tab*) 1 tab.sl PO QPM [facility] Last Admin: 12/13/18 21:10 Dose: 1 tab.sl Hydroxyzine HCl (Atarax Tab*) 25 mg PO Q6H PRN PRN Reason: ANXIETY Last Admin: 12/13/18 21:10 Dose: 25 mg Cefepime HCl (Maxipime 1 Gm In Dextrose Duplex (*)) 1 gm in 50 mls @ 100 mls/ hr IV 0000,1200 [facility] Last Admin: 12/14/18 00:08 Dose: 100 mls/hr Vancomycin HCl 1,000 mg/ (Sodium Chloride) 250 mls @ 166.667 mls/hr IVPB Q6HR [facility] Last Admin: 12/14/18 05:05 Dose: 166.667 mls/hr Nicotine (Nicotine Patch 14 Mg/24 Hr*) 1 patch TRANSDERM DAILY [facility] Last Admin: 12/13/18 10:58 Dose: 1 patch Nicotine Polacrilex (Nicotine Lozenge Mini) 4 mg MT Q2H PRN PRN Reason: WITHDRAWAL Last Admin: 12/10/18 19:03 Dose: 4 mg Ondansetron HCl (Zofran Inj*) 4 mg IV Q6H PRN PRN Reason: NAUSEA Last Admin: 12/11/18 05:46 Dose: 4 mg Pharmacy Consult (Vancomycin Per Pharmacy*) 1 note FOLLOW UP .VANC PER PHARMACY [facility]; Protocol Pharmacy Profile Note (Nicotine Patch Removal Note*) 1 note PATCH OFF 2100 [facility] Last Admin: 12/13/18 21:12 Dose: 1 note Pharmacy Profile Note (Vancomycin Trough Check) 1 note FOLLOW UP ONCE ONE Stop: 12/15/18 05:31 Senna (Senokot 8.6 Mg Tab*) 2 tab PO BEDTIME [facility] Last Admin: 12/13/18 21:12 Dose: Not Given Sertraline HCl (Zoloft*) 25 mg PO DAILY [facility] Vital Signs - 8 hr 12/14/18 12/14/18 12/14/18 02:10 03:28 07:15 Temperature 98.2 F 98.2 F Pulse Rate 80 76 Respiratory 16 16 25 Rate Blood Pressure 113/69 120/70 (mmHg) O2 Sat by Pulse 99 99 Oximetry Oxygen Devices in Use Now: None Exam: General - NAD, sitting up in bed, well groomed and in nightgown Eyes - PERRLA, EOM intact HEENT- no abnormality Cardiovascular - RRR no m/r/g, no JVD, no carotid bruits Lungs - Clear to auscltation, no use of acessory muscles, no crackles or wheezes. Skin - No rashes, skin warm and dry, no erythematous areas; no erythema Abdomen - Normal bowel sounds, abdomen soft and nontender Extremeties - No edema, cyanosis or clubbing Musculo Skeletal - 5/5 strength, normal range of motion, no swollen or erythematous joints. Neurological Alert and oriented x 3, CN 2-12 grossly intact. Psychiatry- Result Diagrams: 12/12/18 06:24 12/13/18 15:04 Microbiology and Other Data: Microbiology 12/10/18 08:59 Aerobic Blood Culture - Preliminary Blood Venous No Growth Day 3 Anaerobic Blood Culture - Preliminary No Growth Day 3 12/10/18 08:15 Aerobic Blood Culture - Preliminary Blood Venous No Growth Day 3 Anaerobic Blood Culture - Preliminary No Growth Day 3 12/10/18 16:10 Urine Culture - Final Urine No Growth (<1,000 CFU/mL) 12/10/18 13:00 Nasal Screen MRSA (PCR) - Final Nasal Mrsa Not Detected Assess/Plan/Problems-Billing Assessment: 33 yo male with PMHx IVDA, generalized anxiety, and hiatal hernia presents with septic shock and fever of unknown origin. - Patient Problems (1) Fever of unknown origin Current Visit: Yes Status: Acute Comment: -patient presented with fever, leukocytosis and signs of septic shock -given IVDA, high concern for endocarditis -TTE without vegetation, ordered JAMES but will not be performed over the holiday weekend - consult id tomorrow -improved with vancomycin, continuing -blood and urine cultures without growth, CXR negative -ordered MRI with contrast of thoracic and lumbar spine to r/o spinal epidural abscess, pending -afebrile for ~36 hours and leukocytosis resolved (2) LILLIAN (acute kidney injury) Current Visit: Yes Status: Acute Code(s): N17.9 - ACUTE KIDNEY FAILURE, UNSPECIFIED SNOMED Code(s): 38684746 Comment: -likely prerenal due to septic shock -now resolved (3) Benzodiazepine abuse Current Visit: Yes Status: Acute Code(s): F13.10 - SEDATIVE, HYPNOTIC OR ANXIOLYTIC ABUSE, UNCOMPLICATED SNOMED Code(s): 079058399 Comment: -given that patient has been taking xanax recreationally at 2 mg po BID, I will continue at 1 mg po BID to avoid withdrawal and he should be titrated down -started zoloft for generalized anxiety (4) DVT prophylaxis Current Visit: Yes Status: Acute Code(s): Z29.9 - ENCOUNTER FOR PROPHYLACTIC MEASURES, UNSPECIFIED SNOMED Code(s): 192448270 Comment: -ambulation (5) Full code status Current Visit: Yes Status: Acute Code(s): Z78.9 - OTHER SPECIFIED HEALTH STATUS SNOMED Code(s): 362204179 (6) Hypokalemia Current Visit: Yes Status: Acute Code(s): E87.6 - HYPOKALEMIA SNOMED Code( s): 56258394 Comment: -vomiting leading up to admission -continued this morning, replaced with 60mg PO potassium chloride -now resolved (7) IV drug abuse Current Visit: Yes Status: Acute Code(s): F19.10 - OTHER PSYCHOACTIVE SUBSTANCE ABUSE, UNCOMPLICATED SNOMED Code(s): 251835128 Comment: -patient has been in inpatient rehab, left two weeks ago, and has returned to using IV heroin -restarting suboxone at 8mg, patient previously prescribed 12 mg and will likely tolerate uptitration (8) Septic shock Current Visit: Yes Status: Acute Code(s): A41.9 - SEPSIS, UNSPECIFIED ORGANISM; R65.21 - SEVERE SEPSIS WITH SEPTIC SHOCK SNOMED Code(s): 14634955 Comment: -now resolved -secondary to unclear source -originally with lactate of 12, has since normalized; initially with hypotension which has now resolved as well
[2018-12-14] MEDS: Nicotine PATCH 14 MG/24 HR* PATCH TRANSDERM SCH (11:18)
[2018-12-14] MEDS: Sertraline* 25 MG TAB PO SCH (11:19)
[2018-12-14] MEDS: Buprenorp/Nalox 8-2 MG SL TAB PO SCH (18:09)
[2018-12-14] MEDS: Senna TAB 8.6 mg* TAB PO SCH (20:50)
[2018-12-14] MEDS: Nicotine Patch Removal NOTE PATCH OFF SCH (20:50)
[2018-12-15] MEDS ORDERED: Vancomycin Trough Check NOTE FOLLOW UP ONE (05:30)
[2018-12-15 05:46] LABS: ABS Basophils 0.1 10^3/ul (0-0.2); ABS Eosinophils 0.5 10^3/ul (0-0.6); ABS Lymphocytes 3.8 10^3/ul (1.0-4.8); ABS Monocytes 1.3 10^3/ul (0-0.8); ABS Neutrophils 5.7 10^3/ul (1.5-7.7); Eosinophil % 4.6 %; Hematocrit 34 % (42-52); Hemoglobin 11.3 g/dL (14.0-18.0); Lymphocyte % 33.2 %; Mean Corpuscular HGB Conc 33 g/dL (31-36); Mean Corpuscular Hemoglobin 28 pg (27-31); Mean Corpuscular Volume 85 fL (80-94); Mean Platelet Volume 7.9 fL (7.4-10.4); Nucleated Red Blood Cells % 0.1; Platelet Count 309 10^3/uL (150-450); Red Cell Distribution Width 15 % (10-15); White Blood Count 11.4 10^3/uL (3.5-10.8)
[2018-12-15 06:04] LABS: Calcium 8.4 mg/dL (8.6-10.3); EGFR African American 117.6 (>60); EGFR Non-African American 97.2 (>60); Potassium 4.5 mmol/L (3.5-5.0)
[2018-12-15] MEDS: Vancomycin(*) 1,000 MG in NS 0.9% 250 ML* 250 ML IVPB SCH ×3 (06:49→19:37)
[2018-12-15] MEDS: ALPRAZolam TAB* 0.5 MG PO PRN (09:49)
[2018-12-15] MEDS: Sertraline* 25 MG TAB PO SCH (09:50)
[2018-12-15] MEDS: Nicotine PATCH 14 MG/24 HR* PATCH TRANSDERM SCH (09:50)
[2018-12-15] MEDS: Cefepime 1 GM in Dextrose(*) 1 GM/50 ML BAG IV SCH (12:06)
--- NOTE | 2018-12-15 13:24 | PN ---
Subjective Date of Service: 12/15/18 Interval History: Pt is doing well, no nausea/vomiting, no pain anywhere, no chest pain, no palpitation, no SOB, no coughing. no signs and symptoms of infection since admission except recent bronchiolitis and long existing back pain. Objective Active Medications: Acetaminophen (Tylenol Tab*) 975 mg PO Q8H PRN PRN Reason: PAIN - MILD Buprenorphine/Naloxone (Suboxone 8-2 Mg Sl Tab*) 1 tab.sl PO QPM [facility] Last Admin: 12/14/18 18:09 Dose: 1 tab.sl Hydroxyzine HCl (Atarax Tab*) 25 mg PO Q6H PRN PRN Reason: ANXIETY Last Admin: 12/13/18 21:10 Dose: 25 mg Cefepime HCl (Maxipime 1 Gm In Dextrose Duplex (*)) 1 gm in 50 mls @ 100 mls/ hr IV 0000,1200 [facility] Last Admin: 12/15/18 12:06 Dose: 100 mls/hr Vancomycin HCl 1,000 mg/ (Sodium Chloride) 250 mls @ 166.667 mls/hr IVPB Q8H [facility] Last Admin: 12/15/18 12:48 Dose: 166.667 mls/hr Nicotine (Nicotine Patch 14 Mg/24 Hr*) 1 patch TRANSDERM DAILY [facility] Last Admin: 12/15/18 09:50 Dose: 1 patch Nicotine Polacrilex (Nicotine Lozenge Mini) 4 mg MT Q2H PRN PRN Reason: WITHDRAWAL Last Admin: 12/10/18 19:03 Dose: 4 mg Ondansetron HCl (Zofran Inj*) 4 mg IV Q6H PRN PRN Reason: NAUSEA Last Admin: 12/11/18 05:46 Dose: 4 mg Pharmacy Consult (Vancomycin Per Pharmacy*) 1 note FOLLOW UP .VANC PER PHARMACY [facility]; Protocol Pharmacy Profile Note (Nicotine Patch Removal Note*) 1 note PATCH OFF 2100 [facility] Last Admin: 12/14/18 20:50 Dose: 1 note Pharmacy Profile Note (Vancomycin Trough Check) 1 note FOLLOW UP 1130 [facility] Stop: 12/16/18 11:31 Senna (Senokot 8.6 Mg Tab*) 2 tab PO BEDTIME [facility] Last Admin: 12/14/18 20:50 Dose: Not Given Sertraline HCl (Zoloft*) 25 mg PO DAILY [facility] Last Admin: 12/15/18 09:50 Dose: 25 mg Trazodone HCl (Desyrel Tab*) 100 mg PO BEDTIME [facility] Vital Signs - 8 hr 12/15/18 12/15/18 12/15/18 07:15 08:00 09:49 Temperature 98.1 F Pulse Rate 80 Respiratory 24 24 24 Rate Blood Pressure 100/51 (mmHg) O2 Sat by Pulse 98 Oximetry 12/15/18 12/15/18 11:15 12:01 Temperature 98.5 F Pulse Rate 85 Respiratory 23 16 Rate Blood Pressure 109/74 (mmHg) O2 Sat by Pulse 99 Oximetry Oxygen Devices in Use Now: None Exam: General - NAD, sitting up in bed, well groomed and in nightgown Eyes - PERRLA, EOM intact HEENT- no abnormality Cardiovascular - RRR no m/r/g, no JVD, no carotid bruits Lungs - Clear to auscltation, no use of acessory muscles, no crackles or wheezes. Skin - No rashes, skin warm and dry, no erythematous areas; no erythema Abdomen - Normal bowel sounds, abdomen soft and nontender Extremeties - No edema, cyanosis or clubbing Musculo Skeletal - 5/5 strength, normal range of motion, no swollen or erythematous joints. Neurological Alert and oriented x 3, CN 2-12 grossly intact. Psychiatry-mood good Result Diagrams: 12/15/18 05:28 12/15/18 05:28 Microbiology and Other Data: Microbiology 12/10/18 08:59 Aerobic Blood Culture - Preliminary Blood Venous No Growth Day 3 Anaerobic Blood Culture - Preliminary No Growth Day 3 12/10/18 08:15 Aerobic Blood Culture - Preliminary Blood Venous No Growth Day 3 Anaerobic Blood Culture - Preliminary No Growth Day 3 12/10/18 16:10 Urine Culture - Final Urine No Growth (<1,000 CFU/mL) 12/10/18 13:00 Nasal Screen MRSA (PCR) - Final Nasal Mrsa Not Detected Assess/Plan/Problems-Billing Assessment: 33 yo male with PMHx IVDA, generalized anxiety, and hiatal hernia presents with septic shock and fever of unknown origin. - Patient Problems (1) Fever of unknown origin Current Visit: Yes Status: Acute Comment: -patient presented with hypothermia/fever, leukocytosis and signs of septic shock -given IVDA, high concern for endocarditis -TTE without vegetation, ordered JAMES but will not be performed over the holiday weekend - improved with vancomycin and cefepime, complete 10/19 by tomorrow -blood and urine cultures without growth, CXR negative -ordered MRI with contrast of thoracic and lumbar spine to r/o spinal epidural abscess, pending -afebrile for ~36 hours and leukocytosis resolved (2) LILLIAN (acute kidney injury) Current Visit: Yes Status: Acute Code(s): N17.9 - ACUTE KIDNEY FAILURE, UNSPECIFIED SNOMED Code(s): 57569282 Comment: -likely prerenal due to septic shock -now resolved (3) Benzodiazepine abuse Current Visit: Yes Status: Acute Code(s): F13.10 - SEDATIVE, HYPNOTIC OR ANXIOLYTIC ABUSE, UNCOMPLICATED SNOMED Code(s): 064282326 Comment: -given that patient has been taking xanax recreationally at 2 mg po BID, xanax was given to avoid withdrawal sx -started zoloft for generalized anxiety (4) DVT prophylaxis Current Visit: Yes Status: Acute Code(s): Z29.9 - ENCOUNTER FOR PROPHYLACTIC MEASURES, UNSPECIFIED SNOMED Code(s): 435920828 Comment: -ambulation (5) Full code status Current Visit: Yes Status: Acute Code(s): Z78.9 - OTHER SPECIFIED HEALTH STATUS SNOMED Code(s): 621358260 (6) Hypokalemia Current Visit: Yes Status: Acute Code(s): E87.6 - HYPOKALEMIA SNOMED Code( s): 67604668 Comment: -vomiting leading up to admission, resolved after repletion (7) IV drug abuse Current Visit: Yes Status: Acute Code(s): F19.10 - OTHER PSYCHOACTIVE SUBSTANCE ABUSE, UNCOMPLICATED SNOMED Code(s): 590800817 Comment: -patient has been in inpatient rehab, left two weeks ago, and has returned to using IV heroin -restarting suboxone at 8mg, patient previously prescribed 12 mg and will likely tolerate uptitration (8) Septic shock Current Visit: Yes Status: Acute Code(s): A41.9 - SEPSIS, UNSPECIFIED ORGANISM; R65.21 - SEVERE SEPSIS WITH SEPTIC SHOCK SNOMED Code(s): 15561032 Comment: -now resolved -secondary to unclear source -originally with lactate of 12, has since normalized; initially with hypotension which has now resolved as well Status and Disposition: Inpatient medicine, aim for discharge soon Attestation Documenting Resident: Claudia Jules Supervising Physician: Bony Dorsey Attending/Supervising Physician Comment: Agree with Dr. Jules's note as outlined here unless indicated. 33 M presented with severe sepsis (no pressors needed) with no source identified. JAMES and MRI spine pending to r/o endocarditis and abscess respectively Prior to presentation reported cough and nasal congestion with some improvement s/p Z-pack lending some support to occult PNA not seen on CXR Improved s/p 6 days abx Attestation: This service has been performed in part by a resident under the direction of a teaching physician.I, Bony Dorsey, performed the service, or was physically present during the critical, or walker portions of the service, furnished by the resident. I participated in the management of the patient.
[2018-12-15] MEDS ORDERED: Gadoteridol* (CONTRAST) 279.3 MG/ML 10 ML IV ONE (15:00)
[2018-12-15] MEDS: Buprenorp/Nalox 8-2 MG SL TAB PO SCH (17:30)
[2018-12-15] MEDS: hydrOXYzine HCL TAB* 25 MG PO PRN (19:37)
[2018-12-15] MEDS: Senna TAB 8.6 mg* TAB PO SCH (19:37)
[2018-12-15] MEDS: Nicotine Patch Removal NOTE PATCH OFF SCH (21:23)
[2018-12-15] MEDS: traZODone TAB* 100 MG PO SCH (21:23)
[2018-12-16] MEDS: Cefepime 1 GM in Dextrose(*) 1 GM/50 ML BAG IV SCH ×2 (00:12→12:22)
[2018-12-16] MEDS: Vancomycin(*) 1,000 MG in NS 0.9% 250 ML* 250 ML IVPB SCH ×2 (03:40→12:23)
[2018-12-16] MEDS: Nicotine PATCH 14 MG/24 HR* PATCH TRANSDERM SCH (08:35)
[2018-12-16] MEDS: Sertraline* 25 MG TAB PO SCH (08:37)
[2018-12-16] MEDS ORDERED: Vancomycin Trough Check NOTE FOLLOW UP ONE (11:30)
[2018-12-16] MEDS ORDERED: Lidocaine 2% VISCOUS* 15 ML UDC ONE (12:29)
[2018-12-16] MEDS ORDERED: Midazolam* 1 MG/ML 5 ML VIAL (5 MG) ONE (12:29)
[2018-12-16] MEDS ORDERED: fentaNYL* 50 MCG/ML 2 ML VIAL (100 MCG VIAL) ONE (12:29)
[2018-12-16] MEDS ORDERED: Naloxone* 0.4 MG/ML 1 ML VIAL ONE (12:29)
[2018-12-16] MEDS ORDERED: Flumazenil* 0.1 MG/ML 5 ML MDV ONE (12:29)
--- NOTE | 2018-12-16 14:31 | TEE ---
*[facility]* [place] [address] Fax #: [phone] Transesophageal Echocardiogram Patient: Jesus Grey : 1985 Study Date: 12/16/2018 Age: 33 Gender: M HR: 111 bpm Height: 78 in /198.1 cm BSA: 2.51 m^2 Weight: 249.5 lb /113.4 kg BMI: 28.9 kg/m^2 *Aesthetics Instructor: * Edna Hodgson RDCS RN *Referring Physician: * O'Megan Hameed *Reading Physician: * Geovani Singh MD Indications: Fever. History: Risk factors: Current tobacco use. IVDA. Hiatal hernia. Conclusions Summary: - Left ventricle: Systolic function is normal. The estimated ejection fraction is 60-65%. - Right ventricle: Systolic function is normal. - Atrial septum: No defect or patent foramen ovale is identified by color flow Doppler. A bubble study was not performed. - Mitral valve: There is no evidence of a vegetation. There is no regurgitation. - Aortic valve: There is no evidence of a vegetation. There is no evidence of stenosis. - Tricuspid valve: There is no evidence of a vegetation. - Pulmonic valve: There is no evidence of a vegetation. - Pericardium, extracardiac: There is no pericardial effusion. Study data: Diagnostic Transesophageal Echocardiogram. This is an abbreviated exam due to the patient's intolerance of the probe. Consent: The risks and benefits of the procedure, including alternatives were discussed with the patient and/or their health care wholesale representative and written informed consent was obtained. Procedure: Initial setup: The patient was brought to the laboratory in the fasting state.Intravenous access was obtained. Surface ECG leads, heart rate, heart rhythm, blood pressure measurements, pulse oximetric signals, and mainstream end-tidal CO2 tracings were monitored throughout the procedure. Sedation. Moderate sedation was administered by nursing staff. History and physical as well as labs were reviewed. An oral bite block was inserted for protection of oral dentition. The patient was placed in the left lateral decubitus position. Topical anesthesia was obtained using viscous lidocaine. A transesophageal probe was inserted by the attending rivet bucker. Transesophageal echocardiography was performed. Image quality was good. All standard views were attempted within the limitations of patient tolerance and safety. The exam was aborted due to the patient's gagging and vomiting. Multiple 2D, color flow Doppler and spectral Doppler images were obtained. Images of all 4 valves were obtained. The transesophageal probe was removed. Location: Procedure room. Patient status: Inpatient. Patient room number: 414-2. Study completion: The patient tolerated the procedure well. There were no complications. Administered medications: Midazolam 10 mg IV. Fentanyl 50 mcg IV. Findings Left ventricle: The cavity size is normal. Systolic function is normal. The estimated ejection fraction is 60-65%. Right ventricle: The cavity size is normal. Systolic function is normal. Left atrium: The atrium is normal in size. The left atrial appendage was not seen. Right atrium: The atrium is normal in size. Atrial septum: No defect or patent foramen ovale is identified by color flow Doppler. A bubble study was not performed. Mitral valve: The valve is structurally normal. There is no evidence of a vegetation. There is no regurgitation. Aortic valve: The valve is structurally normal. The valve is trileaflet. Cusp separation is normal. There is no evidence of a vegetation. There is no evidence of stenosis. There is no regurgitation. Tricuspid valve: The valve is structurally normal. There is no evidence of a vegetation. There is no regurgitation. Pulmonic valve: The valve is seen suboptimally. There is no evidence of a vegetation. There is trace regurgitation. Aorta: Aortic root: The aortic root is mildly dilated. The ascending aorta, aortic arch and descending aorta were not seen. Pericardium: There is no pericardial effusion. Pulmonary arteries: The main pulmonary artery is normal-sized. Systemic veins: Not well visualized. Pulmonary veins: Not well visualized. Measurements Aortic root Value Ref Root diam 2.2 cm <4.3 S-T junct diam, ED (H) 3.7 cm 2.3 - 3.5 Legend: (L) and (H) irma values outside specified reference range. Prepared and electronically signed by Geovani Singh MD 12/16/2018 14:31
[2018-12-16] MEDS: Buprenorp/Nalox 8-2 MG SL TAB PO SCH (17:32)
--- NOTE | 2018-12-16 18:21 | PN ---
Subjective Date of Service: 12/16/18 Interval History: Patient is well today, no complain, eager for discharge. Objective Active Medications: Acetaminophen (Tylenol Tab*) 975 mg PO Q8H PRN PRN Reason: PAIN - MILD Buprenorphine/Naloxone (Suboxone 8-2 Mg Sl Tab*) 1 tab.sl PO QPM [facility] Last Admin: 12/16/18 17:32 Dose: Not Given Hydroxyzine HCl (Atarax Tab*) 25 mg PO Q6H PRN PRN Reason: ANXIETY Last Admin: 12/15/18 19:37 Dose: 25 mg Nicotine (Nicotine Patch 14 Mg/24 Hr*) 1 patch TRANSDERM DAILY [facility] Last Admin: 12/16/18 08:35 Dose: 1 patch Nicotine Polacrilex (Nicotine Lozenge Mini) 4 mg MT Q2H PRN PRN Reason: WITHDRAWAL Last Admin: 12/10/18 19:03 Dose: 4 mg Ondansetron HCl (Zofran Inj*) 4 mg IV Q6H PRN PRN Reason: NAUSEA Last Admin: 12/11/18 05:46 Dose: 4 mg Pharmacy Consult (Vancomycin Per Pharmacy*) 1 note FOLLOW UP .VANC PER PHARMACY [facility]; Protocol Pharmacy Profile Note (Nicotine Patch Removal Note*) 1 note PATCH OFF 2100 [facility] Last Admin: 12/15/18 21:23 Dose: 1 note Senna (Senokot 8.6 Mg Tab*) 2 tab PO BEDTIME [facility] Last Admin: 12/15/18 19:37 Dose: Not Given Sertraline HCl (Zoloft*) 25 mg PO DAILY [facility] Last Admin: 12/16/18 08:37 Dose: Not Given Trazodone HCl (Desyrel Tab*) 100 mg PO BEDTIME [facility] Last Admin: 12/15/18 21:23 Dose: 100 mg Vital Signs - 8 hr 12/16/18 12/16/18 12/16/18 11:15 12:07 12:08 Temperature 97.7 F Pulse Rate 79 82 81 Respiratory 16 17 16 Rate Blood Pressure 113/64 119/73 (mmHg) O2 Sat by Pulse 99 99 98 Oximetry 12/16/18 12/16/18 12/16/18 12:11 12:23 13:00 Temperature Pulse Rate 81 78 89 Respiratory 16 18 Rate Blood Pressure 119/73 127/79 (mmHg) O2 Sat by Pulse 98 98 98 Oximetry 12/16/18 12/16/18 12/16/18 13:04 13:08 13:13 Temperature Pulse Rate 83 88 103 Respiratory Rate Blood Pressure 109/65 101/64 125/77 (mmHg) O2 Sat by Pulse 98 100 99 Oximetry 12/16/18 12/16/18 12/16/18 13:18 13:23 13:28 Temperature Pulse Rate 104 96 89 Respiratory Rate Blood Pressure 89/61 86/64 116/66 (mmHg) O2 Sat by Pulse 99 99 100 Oximetry 12/16/18 12/16/18 12/16/18 13:33 13:50 15:25 Temperature 98.3 F 98.2 F Pulse Rate 93 84 81 Respiratory 16 16 Rate Blood Pressure 108/75 108/66 110/58 (mmHg) O2 Sat by Pulse 99 100 100 Oximetry 12/16/18 16:10 Temperature 98.7 F Pulse Rate 87 Respiratory 18 Rate Blood Pressure 99/54 (mmHg) O2 Sat by Pulse 100 Oximetry Oxygen Devices in Use Now: None Exam: General - NAD, sitting up in bed Eyes - PERRLA, EOM intact HEENT- no abnormality Lymph Nodes - No lymphadenopathy Cardiovascular - RRR no m/r/g, no JVD, no carotid bruits Lungs - Clear to auscltation, no use of acessory muscles, no crackles or wheezes. Skin - No rashes, skin warm and dry, no erythematous areas Abdomen - Normal bowel sounds, abdomen soft and nontender Extremeties - No edema, cyanosis or clubbing Musculo Skeletal - 5/5 strength, normal range of motion, no swollen or erythematous joints. Neurological Alert and oriented x 3, CN 2-12 grossly intact. Psychiatry- Result Diagrams: 12/15/18 05:28 12/15/18 05:28 Microbiology and Other Data: Microbiology 12/10/18 08:59 Aerobic Blood Culture - Preliminary Blood Venous No Growth Day 3 Anaerobic Blood Culture - Preliminary No Growth Day 3 12/10/18 08:15 Aerobic Blood Culture - Preliminary Blood Venous No Growth Day 3 Anaerobic Blood Culture - Preliminary No Growth Day 3 12/10/18 16:10 Urine Culture - Final Urine No Growth (<1,000 CFU/mL) 12/10/18 13:00 Nasal Screen MRSA (PCR) - Final Nasal Mrsa Not Detected Assess/Plan/Problems-Billing Assessment: 33 yo male with PMHx IVDA, generalized anxiety, and hiatal hernia presents with septic shock with no specific infective sources identified. - Patient Problems (1) Fever of unknown origin Current Visit: Yes Status: Acute Comment: -patient presented with hypothermia/fever, leukocytosis and signs of septic shock -given IVDA, high concern for endocarditis -TTE without vegetation, JAMES today - improved with vancomycin and cefepime, complete 10/19 by today - blood and urine cultures without growth, CXR negative - MRI with contrast of thoracic and lumbar spine: neg - TW 11 noted today, recheck tomorrow (2) LILLIAN (acute kidney injury) Current Visit: Yes Status: Acute Code(s): N17.9 - ACUTE KIDNEY FAILURE, UNSPECIFIED SNOMED Code(s): 41523213 Comment: -likely prerenal due to septic shock -now resolved (3) Benzodiazepine abuse Current Visit: Yes Status: Acute Code(s): F13.10 - SEDATIVE, HYPNOTIC OR ANXIOLYTIC ABUSE, UNCOMPLICATED SNOMED Code(s): 622689781 Comment: -given that patient has been taking xanax recreationally at 2 mg po BID, xanax was given to avoid withdrawal sx initially -started zoloft for generalized anxiety (4) DVT prophylaxis Current Visit: Yes Status: Acute Code(s): Z29.9 - ENCOUNTER FOR PROPHYLACTIC MEASURES, UNSPECIFIED SNOMED Code(s): 409077093 Comment: -ambulation (5) Full code status Current Visit: Yes Status: Acute Code(s): Z78.9 - OTHER SPECIFIED HEALTH STATUS SNOMED Code(s): 664994638 (6) Hypokalemia Current Visit: Yes Status: Acute Code(s): E87.6 - HYPOKALEMIA SNOMED Code( s): 45366287 Comment: -vomiting leading up to admission, resolved after repletion (7) IV drug abuse Current Visit: Yes Status: Acute Code(s): F19.10 - OTHER PSYCHOACTIVE SUBSTANCE ABUSE, UNCOMPLICATED SNOMED Code(s): 557531194 Comment: -patient has been in inpatient rehab, left two weeks ago, and has returned to using IV heroin -restarting suboxone at 8mg, patient previously prescribed 12 mg and will likely tolerate uptitration (8) Septic shock Current Visit: Yes Status: Acute Code(s): A41.9 - SEPSIS, UNSPECIFIED ORGANISM; R65.21 - SEVERE SEPSIS WITH SEPTIC SHOCK SNOMED Code(s): 11195491 Comment: -now resolved -secondary to unclear source -originally with lactate of 12, has since normalized; initially with hypotension which has now resolved as well Status and Disposition: Inpatient medicine, aim for discharge soon Attestation Documenting Resident: Claudia Jules Supervising Physician: Bony Dorsey Attending/Supervising Physician Comment: Agree with Dr. Jules's note as outlined here unless indicated. Abx course completed Repeat CBC tomorrow JAMES report pending but no reported endocarditis after procedure today Attestation: This service has been performed in part by a resident under the direction of a teaching physician.I, Bony Dorsey, performed the service, or was physically present during the critical, or walker portions of the service, furnished by the resident. I participated in the management of the patient.
[2018-12-16] MEDS: traZODone TAB* 100 MG PO SCH (20:56)
[2018-12-16] MEDS: Senna TAB 8.6 mg* TAB PO SCH (20:56)
[2018-12-16] MEDS: Nicotine Patch Removal NOTE PATCH OFF SCH (20:58)
[2018-12-17 07:21] LABS: ABS Basophils 0.1 10^3/ul (0-0.2); ABS Eosinophils 0.2 10^3/ul (0-0.6); ABS Lymphocytes 2.8 10^3/ul (1.0-4.8); ABS Monocytes 0.9 10^3/ul (0-0.8); ABS Neutrophils 4.6 10^3/ul (1.5-7.7); Eosinophil % 2.9 %; Hematocrit 33 % (42-52); Hemoglobin 11.1 g/dL (14.0-18.0); Lymphocyte % 32.3 %; Mean Corpuscular HGB Conc 33 g/dL (31-36); Mean Corpuscular Hemoglobin 28 pg (27-31); Mean Corpuscular Volume 85 fL (80-94); Mean Platelet Volume 7.9 fL (7.4-10.4); Nucleated Red Blood Cells % 0.1; Platelet Count 259 10^3/uL (150-450); Red Blood Count 3.94 10^6 /uL (4.18-5.48); Red Cell Distribution Width 15 % (10-15); White Blood Count 8.6 10^3/uL (3.5-10.8)
[2018-12-17 07:50] VITALS: BP 105/65
[2018-12-17] MEDS: Sertraline* 25 MG TAB PO SCH (08:36)
[2018-12-17] MEDS: Nicotine PATCH 14 MG/24 HR* PATCH TRANSDERM SCH (08:36)
--- NOTE | 2018-12-17 19:32 | DS ---
CC: Dr. Claudia Jules, [facility]* DISCHARGE SUMMARY: DATE OF ADMISSION: 12/10/18 DATE OF DISCHARGE: 12/17/18 PRIMARY CARE PROVIDER: Dr. Claudia Jules. DISPOSITION ON DISCHARGE: Homeless halfway. CONDITION ON DISCHARGE: Good. PRIMARY DIAGNOSES: 1. Septic shock, unknown etiology. 2. Acute kidney injury, resolved. SECONDARY DIAGNOSIS: Include polysubstance abuse including intravenous heroin and benzodiazepines. MEDICATIONS AT DISCHARGE: Include: 1. Loratadine 10 mg daily. 2. Ropinirole 0.5 mg at bedtime. 3. Trazodone 100 mg at bedtime. 4. Meloxicam 7.5 mg twice daily as needed for pain. HISTORY OF PRESENT ILLNESS AND HOSPITAL COURSE: This is a 33-year-old man with past medical history of active intravenous drug use, presented with weakness and falls, nausea, vomiting and vague abdominal pain, was found in septic shock , notable fever, T-max of 100.6, he was hypothermic on presentation 94.6, presenting blood pressure is 72/38. He received IV resuscitation, crystalloids , but no vasopressors, was admitted to the ICU, improved on broad-spectrum antibiotics including vancomycin and cefepime. Thorough investigation for etiology of sepsis was undertaken. He remained afebrile during the course of hospital stay. He had a negative chest x-ray, negative MRI of his spine to evaluate for epidural abscess, negative JAMES and transesophageal echocardiogram without finding of vegetations. His urine and blood cultures remained negative. Of note, the patient did indicate he had an episode of "bronchitis" a week prior to presentation indicating possibly had undiagnosed pneumonia that was not identified on presenting chest x-ray. At the time of discharge, he was back to his baseline, ambulating around the halls, tolerating regular diet, anxious to leave the hospital, had been afebrile, off of antibiotics for 24 hours, last fever was on 12/12/18. No complications during the course of his hospital stay. At this point, unclear whether the patient remained drug free, did not engage with this author meaningfully in the conversation. At followup, please: 1. Ensure the patient engaged in services to remain drug free. He is not interested in Suboxone at this point. 2. Ensure remains fever free. 3. No other specific labs or vitals that need followup. Reasons to return to the hospital including but not limited to recurrent or worsening symptoms including recurrent fevers, chills, night sweats, chest pain , shortness of breath, nausea, vomiting, lightheadedness, loss of consciousness or near loss of consciousness were discussed with the patient and his mother, he acknowledged understanding. TIME SPENT: Greater than 60 minutes was spent on the discharge of this patient , greater than half was spent [id number] with the patient. [id number]/CPS #: [id number] MTDD
== END 2018-12-17 09:50 | disposition home or self-care (01) | DRG 720 ==
LOC: ED 07:28 → ICU 12:14 → MED 12-12 11:35
PROVIDERS: ADMIT Internal Medicine; ATTEND Internal Medicine
PROC: B24BYZZ Ultrasonography of Heart with Aorta using Other Contrast (ICD-10-PCS; principal; 2018-12-10)
DX: A41.9 Sepsis, unspecified organism (principal); R65.21 Severe sepsis with septic shock; N17.9 Acute kidney failure, unspecified; E87.2 Acidosis; E87.1 Hypo-osmolality and hyponatremia; M62.82 Rhabdomyolysis; F11.10 Opioid abuse, uncomplicated; F19.10 Other psychoactive substance abuse, uncomplicated; E86.0 Dehydration; E87.6 Hypokalemia; G89.29 Other chronic pain; M54.9 Dorsalgia, unspecified; F17.210 Nicotine dependence, cigarettes, uncomplicated; M54.5 Low back pain; Z56.0 Unemployment, unspecified
CPT/HCPCS: 36415; 71045; 72157; 72158; 76775; 80048; 80053; 80202; 80307; 81003; 81015; 82550; 82553; 83605; 83690; 83735; 83874; 83880; 84436; 84443; 84484; 85025; 85610; 85652; 85730; 86140; 87040; 87086; 87389; 87641; 87902; 93005; 93306; 93312; 93325; 99156; 99284; A9270-GY; A9579; J0456; J0692; J0696; J2250; J2310; J2405; J3010; J3370; J3480